=== PATIENT | male | born 1950 | race Caucasian/White ===

== ENCOUNTER → 2016-04-27 | Outpatient (CLI) | payer OTHER ==
--- NOTE | 2016-04-27 22:32 | DX ---
Left Ankle, Three Views HISTORY: Ankle pain and swelling. FINDINGS: Soft tissue swelling is seen around the left ankle, more predominant over the lateral mall eolus. There is a tibiotalar joint effusion. A small ossification is seen inferior to the tip of th e medial malleolus suggesting sequela from an old injury. No evidence for an acute fracture. No oth er significant osseous abnormality. IMPRESSION: No evidence for an acute fracture. Results called to Dr. Иван Lizarraga.
== END | disposition home or self-care (01) ==
LOC: EDSTATUS 13:36 → FIMAGING 19:08
PROVIDERS: ATTEND Family Medicine
DX: M25.572 Pain in left ankle and joints of left foot (principal)

== ENCOUNTER → 2016-05-07 | Outpatient (CLI) | payer OTHER ==
--- NOTE | 2016-05-07 18:34 | US ---
Left Lower Extremity Ultrasound and Venous Duplex Doppler Study History: Swelling, ankle pain. Technique: High frequency transducer was used for imaging and Doppler study of the veins of the lowe r extremity. Pulsed Doppler and color Doppler were utilized, along with various maneuvers, to asses s flow in the veins. Comparison: None available. Findings: The deep veins of the lower extremity are normally compressible between the groin and the upper calf and have normal Doppler waveforms within them. No venous thrombosis is identified. Scatt ered mildly prominent lymph nodes are present. Impression: 1. No evidence of deep vein thrombosis. 2. Nonspecific mildly prominent lymph nodes, which could be reactive. Clinical follow up is recomme nded. Findings discussed with Dr. Zev Craig on May 07, 2016 at 1806 hours.
== END ==
LOC: FIMAGING 17:22
PROVIDERS: ATTEND Orthopaedic Surgery
DX: R22.42 Localized swelling, mass and lump, left lower limb (principal)